=== PATIENT | female | born 1980 | race Caucasian/White ===

== ENCOUNTER 2018-07-02 09:00 | Observation (INO) | payer BC ==
[~2018-07-02] VITALS: Ht 167.6 cm; Wt 81.2 kg
== END 2018-07-02 10:20 | disposition home or self-care (01) ==
LOC: SPU 09:00
PROVIDERS: ADMIT Obstetrics & Gynecology; ATTEND Obstetrics & Gynecology
DX: Z34.93 Encounter for supervision of normal pregnancy, unspecified, third trimester (principal); Z3A.35 35 weeks gestation of pregnancy
CPT/HCPCS: 59025; 76815; G0378

== ENCOUNTER 2018-07-12 17:27 | Inpatient (IN) | payer BC ==
[~2018-07-12] VITALS: Ht 167.6 cm; Wt 81.6 kg
[~2018-07-12 17:27] MED LIST: ATROPINE SULFATE 0.4 MG/ML VIAL IVP ONE; BUPIVACAINE /DEX PF 0.75% SPINAL 2 ML AMP INJ ONE; LR 1,000 ML IV.SOLN IV ONE; MORPHINE SULFATE 10MG/10ML PF AMP EP ONE; NS 1000 ML IV.SOLN IV ONE; ePHEDrine sulfate 50 MG/ML VIAL IVP ONE
[2018-07-12] MEDS ORDERED: LR 1,000 ML IV ONE (17:40)
[2018-07-12] MEDS ORDERED: CEFAZOLIN 2 GM IVPB PREMIX 50 ML IV ONE (17:45)
[2018-07-12 18:12] LABS: BASOPHILS % (AUTO) 0.5 % (0.0-2.0); EOSINOPHILS # (AUTO) 0.2 K/uL (0.0-0.4); EOSINOPHILS % (AUTO) 1.9 % (0.0-4.0); HEMATOCRIT 43.2 % (36-48); LYMPHOCYTES # (AUTO) 1.9 K/uL (1.0-5.5); LYMPHOCYTES % (AUTO) 20.5 % (20.5-51.5); MEAN CORPUSCULAR HEMOGLOBIN 29 pg (27-31); MEAN CORPUSCULAR HGB CONC 33 % (32-36); MEAN CORPUSCULAR VOLUME 89 fL (79.0-98.0); MONOCYTES # (AUTO) 0.7 K/uL (0.0-1.0); MONOCYTES % (AUTO) 7.8 % (1.7-9.3); NEUTROPHILS # (AUTO) 6.5 K/uL (1.8-7.7); NEUTROPHILS % (AUTO) 69.3 % (40.0-70.0); PLATELET COUNT (AUTO) 207 K/uL (130-430); RED BLOOD CELL COUNT(AUTO) 4.84 MIL/uL (4.2-6.2); RED CELL DISTRIBUTION WIDTH 13.6 % (9.0-15.0); WHITE BLOOD COUNT (AUTO) 9.3 K/uL (4.8-10.8)
[2018-07-12 19:06] VITALS: BP_SYST 131
[2018-07-12] MEDS: LABETALOL HCL 100 MG TABLET PO SCH (20:41)
[2018-07-13] MEDS: LABETALOL HCL 100 MG TABLET PO SCH ×2 (09:03→21:30)
[2018-07-13] MEDS ORDERED: CEFAZOLIN 2 GM IVPB PREMIX 50 ML IV ONE (09:15)
[2018-07-13] MEDS ORDERED: LR 1,000 ML IV SCH ×2 (10:01→10:29)
[2018-07-13] MEDS ORDERED: NALOXONE HCL 1 MG in NACL 0.9% 1,000 ML IV PRN ×4 (10:01)
[2018-07-13] MEDS ORDERED: KETOROLAC TROMETHAMINE 60 MG/2 ML VIAL IM PRN (10:15)
[2018-07-13] MEDS ORDERED: ONDANSETRON HCL 4 MG/2 ML VIAL IVP PRN (10:15)
[2018-07-13] MEDS ORDERED: HYDROmorphone 1 MG INJ. 1 MG/ML AMPUL IVP PRN (10:15)
[2018-07-13] MEDS ORDERED: MEPERIDINE HCL/PF 25 MG/ML DISP.SYRIN IVP PRN ×2 (10:15)
[2018-07-13] MEDS ORDERED: HYDROmorphone 2 MG/ML VIAL IVP PRN ×2 (10:15)
[2018-07-13] MEDS ORDERED: DIPHENHYDRAMINE INJ 50 MG/ML VIAL IVP PRN ×2 (10:15→16:45)
[2018-07-13] MEDS ORDERED: DIPHENHYDRAMINE HCL 50 MG CAPSULE PO PRN (10:15)
[2018-07-13] MEDS ORDERED: NALOXONE HCL 0.4 MG/ML AMP (NARCAN) IVP PRN ×3 (10:15)
[2018-07-13] MEDS ORDERED: BISACODYL 10 MG/SUPPOSITORY RC PRN (10:30)
[2018-07-13] MEDS ORDERED: MEASLES,MUMPS&RUBELLA VACC/PF 12500 UNIT/0.5 ML VIAL SUBQ PRN (10:30)
[2018-07-13] MEDS ORDERED: RHO(D) IMMUNE GLOBULIN/MALTOSE 1500 UNITS/1.3 ML (WINHRO) IM PRN (10:30)
[2018-07-13] MEDS ORDERED: LANOLIN 7 GM OINT. TP PRN (10:30)
[2018-07-13] MEDS ORDERED: OXYCODONE/ACETAMINOPHEN 5-325 TABLET PO PRN (10:30)
[2018-07-13] MEDS ORDERED: DIPH-TET-PERTUS Vaccine 0.5 ML VIAL (ADACEL) I.M. PRN (10:30)
[2018-07-13] MEDS ORDERED: ANUSOL 1 EA SUPP.RECT (PREPARATION H) RC PRN (10:30)
[2018-07-13] MEDS ORDERED: SENNOSIDES/DOCUSATE SODIUM 1 TAB TABLET(SENOKOT-S) PO PRN (10:30)
[2018-07-13 10:43] VITALS: BP_SYST 116
[2018-07-13] MEDS ORDERED: DIPHENHYDRAMINE INJ 50 MG/ML VIAL IM PRN (16:45)
[2018-07-13] MEDS: IBUPROFEN 600 MG TABLET PO SCH ×2 (19:05→23:51)
[2018-07-13] MEDS: SIMETHICONE 80 MG TAB.CHEW PO PRN (19:05)
[2018-07-13] MEDS ORDERED: TEMAZEPAM 15 MG CAPSULE PO PRN (21:00)
[2018-07-14] MEDS: IBUPROFEN 600 MG TABLET PO SCH ×4 (06:08→23:56)
[2018-07-14 07:17] LABS: BASOPHILS % (AUTO) 0.4 % (0.0-2.0); EOSINOPHILS # (AUTO) 0.1 K/uL (0.0-0.4); EOSINOPHILS % (AUTO) 1.4 % (0.0-4.0); HEMATOCRIT 32.1 % (36-48); LYMPHOCYTES # (AUTO) 1.4 K/uL (1.0-5.5); LYMPHOCYTES % (AUTO) 13.5 % (20.5-51.5); MEAN CORPUSCULAR HEMOGLOBIN 31 pg (27-31); MEAN CORPUSCULAR HGB CONC 34 % (32-36); MEAN CORPUSCULAR VOLUME 90 fL (79.0-98.0); MONOCYTES # (AUTO) 0.7 K/uL (0.0-1.0); MONOCYTES % (AUTO) 6.8 % (1.7-9.3); NEUTROPHILS # (AUTO) 8.4 K/uL (1.8-7.7); NEUTROPHILS % (AUTO) 77.9 % (40.0-70.0); PLATELET COUNT (AUTO) 140 K/uL (130-430); RED BLOOD CELL COUNT(AUTO) 3.57 MIL/uL (4.2-6.2); RED CELL DISTRIBUTION WIDTH 13.6 % (9.0-15.0); WHITE BLOOD COUNT (AUTO) 10.6 K/uL (4.8-10.8)
[2018-07-14] MEDS: SIMETHICONE 80 MG TAB.CHEW PO PRN (08:58)
[2018-07-14] MEDS: LABETALOL HCL 100 MG TABLET PO SCH ×2 (09:00→23:22)
--- NOTE | 2018-07-14 14:33 | NUR ---
Dietitian Recommendations * Recommend continuing regular, [facility] standard carb-60 gm diet per LP, RD Please refer to Nutrition Assessment for details.
[2018-07-15] MEDS: IBUPROFEN 600 MG TABLET PO SCH ×4 (05:43→23:57)
[2018-07-15] MEDS: OXYCODONE/ACETAMINOPHEN 5-325 TABLET PO PRN (08:41)
[2018-07-15] MEDS: DOCUSATE SODIUM 100 MG CAPSULE PO PRN ×2 (08:41→21:30)
[2018-07-15] MEDS: LABETALOL HCL 100 MG TABLET PO SCH ×2 (08:44→21:30)
[2018-07-16] MEDS: IBUPROFEN 600 MG TABLET PO SCH (06:11)
[2018-07-16] MEDS: DOCUSATE SODIUM 100 MG CAPSULE PO PRN (06:11)
[2018-07-16] MEDS: OXYCODONE/ACETAMINOPHEN 5-325 TABLET PO PRN (06:30)
[2018-07-16] MEDS: LABETALOL HCL 100 MG TABLET PO SCH (09:54)
[2018-07-16] MEDS ORDERED: MEASLES,MUMPS&RUBELLA VACC/PF 12500 UNIT/0.5 ML VIAL SUBQ ONE (11:30)
== END 2018-07-16 11:40 | disposition home or self-care (01) | DRG 765 ==
LOC: SPU 17:27
PROVIDERS: ADMIT Obstetrics & Gynecology; ATTEND Obstetrics & Gynecology
PROC: 10D00Z1 Extraction of Products of Conception, Low, Open Approach (ICD-10-PCS; principal; 2018-07-13 09:15)
DX: O43.123 Velamentous insertion of umbilical cord, third trimester (principal); O10.92 Unspecified pre-existing hypertension complicating childbirth; O41.03X0 Oligohydramnios, third trimester, not applicable or unspecified; O24.420 Gestational diabetes mellitus in childbirth, diet controlled; D25.9 Leiomyoma of uterus, unspecified; O34.13 Maternal care for benign tumor of corpus uteri, third trimester; O99.214 Obesity complicating childbirth; E66.9 Obesity, unspecified; Z68.29 Body mass index [BMI] 29.0-29.9, adult; Z82.49 Family history of ischemic heart disease and other diseases of the circulatory system; Z3A.37 37 weeks gestation of pregnancy; Z37.0 Single live birth
CPT/HCPCS: 36415; 82947-TC; 82962; 85025; 86592; 86886; 86900; 86901; 90715; 94760; J0461; J0690; J1200; J2274; J3490; J7030; J7120

== ENCOUNTER 2020-10-01 11:42 | Inpatient (IN) | payer BC, SELFPAY ==
[~2020-10-01] VITALS: Ht 165.1 cm; Wt 84.4 kg
[2020-10-01] MEDS ORDERED: LR 1,000 ML IV ONE (12:15)
[2020-10-01 12:38] LABS: BASOPHILS # (AUTO) 0.1 K/uL (0.0-0.2); BASOPHILS % (AUTO) 1.4 % (0.0-2.0); EOSINOPHILS % (AUTO) 0.3 % (0.0-4.0); HEMATOCRIT 42.6 % (36-48); HEMOGLOBIN 14.8 g/dL (12.0-16.0); LYMPHOCYTES # (AUTO) 1.7 K/uL (1.0-5.5); LYMPHOCYTES % (AUTO) 19.9 % (20.5-51.5); MEAN CORPUSCULAR HEMOGLOBIN 31 pg (27-31); MEAN CORPUSCULAR HGB CONC 35 % (32-36); MEAN CORPUSCULAR VOLUME 90 fL (79.0-98.0); MONOCYTES # (AUTO) 0.5 K/uL (0.0-1.0); MONOCYTES % (AUTO) 6.2 % (1.7-9.3); NEUTROPHILS # (AUTO) 6.2 K/uL (1.8-7.7); NEUTROPHILS % (AUTO) 72.2 % (40.0-70.0); PLATELET COUNT (AUTO) 183 K/uL (130-430); RED BLOOD CELL COUNT(AUTO) 4.76 MIL/uL (4.2-6.2); RED CELL DISTRIBUTION WIDTH 13.8 % (9.0-15.0); WHITE BLOOD COUNT (AUTO) 8.6 K/uL (4.8-10.8)
[2020-10-01 12:47] LABS: BILIRUBIN,URINE NEGATIVE (NEGATIVE); BLOOD, URINE 1+ (NEGATIVE); CLARITY/URINE CLEAR (CLEAR); COLOR,URINE YELLOW (YELLOW); GLUCOSE,URINE NEGATIVE (NEGATIVE); KETONES,URINE NEGATIVE (NEGATIVE); LEUKOCYTE ESTERASE ,URINE NEGATIVE (NEGATIVE); NITRITE, URINE NEGATIVE (NEGATIVE); PROTEIN URINE NEGATIVE (NEGATIVE); UROBILINOGEN,URINE 0.2 (0.2-1.0)
[2020-10-01 13:03] LABS: BACTERIA,URINE MODERATE /HPF (None Seen); MUCUS,URINE 1+ /LPF (None Seen); RBC,URINE 0-3 /HPF (0-3); WBC,URINE 0-3 /HPF (0-3)
[2020-10-01 14:21] VITALS: BP_SYST 134
[2020-10-01] MEDS ORDERED: FLU VACC QS2020-21 (6 mos & up) 0.5 ML/SYRINGE I.M. PRN (14:30)
[2020-10-01] MEDS ORDERED: TERBUTALINE SULFATE 1 MG/ML VIAL SUBCUT ONE (19:15)
[2020-10-01] MEDS ORDERED: CEFAZOLIN 2 GM IVPB PREMIX 50 ML IV ONE ×2 (23:17→23:29)
[2020-10-01] MEDS ORDERED: MORPHINE SULFATE 10MG/10ML PF AMP EP ONE (23:29)
[2020-10-01] MEDS ORDERED: NS IRRIG SOLN 1000 ML IR ONE (23:29)
[2020-10-01] MEDS ORDERED: DEXAMETHASONE SOD PHOSPHATE 4 MG/ML VIAL IVP ONE (23:29)
[2020-10-01] MEDS ORDERED: LR 1,000 ML IV.SOLN IV ONE (23:29)
[2020-10-01] MEDS ORDERED: ONDANSETRON HCL 4 MG/2 ML VIAL IVP ONE (23:29)
[2020-10-01] MEDS ORDERED: ePHEDrine sulfate 50 MG/ML VIAL IVP ONE (23:29)
[2020-10-01] MEDS ORDERED: METOCLOPRAMIDE HCL 10 MG/2 ML VIAL IVP ONE (23:29)
[2020-10-01] MEDS ORDERED: NALOXONE HCL 0.4 MG/ML AMP (NARCAN) IVP PRN (23:45)
[2020-10-01] MEDS ORDERED: RHO(D) IMMUNE GLOBULIN/MALTOSE 1500 UNITS/1.3 ML (WINHRO) IM PRN (23:45)
[2020-10-01] MEDS ORDERED: DIPH-TET-PERTUS Vaccine 0.5 ML VIAL (ADACEL) I.M. PRN (23:45)
[2020-10-01] MEDS ORDERED: ANUSOL 1 EA SUPP.RECT (PREPARATION H) RC PRN (23:45)
[2020-10-01] MEDS ORDERED: LR 1,000 ML IV SCH (23:45)
[2020-10-01] MEDS ORDERED: OXYTOCIN/0.9 % SODIUM CHLORIDE 1,000 ML IV SCH (23:45)
[2020-10-01] MEDS ORDERED: MEASLES,MUMPS&RUBELLA VACC/PF 12500 UNIT/0.5 ML VIAL SUBQ PRN (23:45)
[2020-10-01] MEDS ORDERED: OXYCODONE/ACETAMINOPHEN *10*mg/325 mg TABLET PO PRN (23:45)
[2020-10-01] MEDS ORDERED: HYDROcodone/ACETAMIN 5-325 MG TAB (NORCO/ VICODIN) PO PRN (23:45)
[2020-10-01] MEDS ORDERED: LANOLIN 7 GM OINT. TP PRN (23:45)
[2020-10-01] MEDS ORDERED: TEMAZEPAM 15 MG CAPSULE PO PRN (23:45)
[2020-10-01] MEDS ORDERED: BISACODYL 10 MG/SUPPOSITORY RC PRN (23:45)
[2020-10-01] MEDS ORDERED: SENNOSIDES/DOCUSATE SODIUM 1 TAB TABLET(SENOKOT-S) PO PRN (23:45)
[2020-10-01] MEDS ORDERED: SIMETHICONE 80 MG TAB.CHEW PO PRN (23:45)
[2020-10-02] MEDS ORDERED: DIPHENHYDRAMINE INJ 50 MG/ML VIAL IVP PRN (00:30)
[2020-10-02] MEDS ORDERED: DIPHENHYDRAMINE HCL 50 MG CAPSULE PO PRN (00:30)
[2020-10-02] MEDS ORDERED: KETOROLAC TROMETHAMINE 60 MG/2 ML VIAL IM PRN (00:30)
[2020-10-02] MEDS ORDERED: NALOXONE HCL 0.4 MG/ML AMP (NARCAN) IVP PRN ×3 (00:30)
[2020-10-02] MEDS ORDERED: LR 1,000 ML IV SCH (00:30)
[2020-10-02] MEDS ORDERED: NALOXONE HCL 1 MG in NACL 0.9% 1,000 ML IV PRN ×4 (00:30)
[2020-10-02] MEDS ORDERED: MORPHINE SULFATE 10MG/10ML PF AMP SP SCH (00:30)
[2020-10-02] MEDS ORDERED: HYDROmorphone 2 MG/ML VIAL IVP PRN ×2 (00:30)
[2020-10-02] MEDS ORDERED: MEPERIDINE HCL/PF 25 MG/ML DISP.SYRIN IVP PRN ×2 (00:30)
[2020-10-02] MEDS ORDERED: MORPHINE 4 MG/ML INJ. SYRINGE IVP PRN (00:30)
[2020-10-02] MEDS ORDERED: HYDROmorphone 1 MG INJ. 1 MG/ML AMPUL IVP PRN (00:30)
[2020-10-02] MEDS ORDERED: ONDANSETRON HCL 4 MG/2 ML VIAL IVP PRN (00:30)
[2020-10-02 00:36] VITALS: BP_SYST 122
[2020-10-02] MEDS ORDERED: OXYTOCIN 10 UNIT/ML VIAL ONE (02:02)
[2020-10-02] MEDS ORDERED: OXYTOCIN/0.9 % SODIUM CHLORIDE 1,000 ML IV ONE (02:03)
[2020-10-02] MEDS: KETOROLAC TROMETHAMINE 30 MG VIAL IVP SCH ×3 (05:53→18:15)
[2020-10-02] MEDS: CEFAZOLIN 1 GM IVPB PREMIX 50 ML IV SCH ×3 (05:54→18:15)
[2020-10-02 06:54] LABS: BASOPHILS % (AUTO) 0.3 % (0.0-2.0); HEMATOCRIT 39.4 % (36-48); HEMOGLOBIN 13.1 g/dL (12.0-16.0); LYMPHOCYTES # (AUTO) 0.6 K/uL (1.0-5.5); LYMPHOCYTES % (AUTO) 4.2 % (20.5-51.5); MEAN CORPUSCULAR HEMOGLOBIN 30 pg (27-31); MEAN CORPUSCULAR HGB CONC 33 % (32-36); MEAN CORPUSCULAR VOLUME 90 fL (79.0-98.0); MONOCYTES # (AUTO) 0.4 K/uL (0.0-1.0); MONOCYTES % (AUTO) 2.9 % (1.7-9.3); NEUTROPHILS % (AUTO) 92.6 % (40.0-70.0); PLATELET COUNT (AUTO) 162 K/uL (130-430); RED BLOOD CELL COUNT(AUTO) 4.36 MIL/uL (4.2-6.2); WHITE BLOOD COUNT (AUTO) 15.1 K/uL (4.8-10.8)
[2020-10-02] MEDS: DOCUSATE SODIUM 100 MG CAPSULE PO PRN (19:49)
[2020-10-02] MEDS: OXYCODONE/ACETAMINOPHEN 5-325 TABLET PO PRN (23:51)
[2020-10-03] MEDS: KETOROLAC TROMETHAMINE 30 MG VIAL IVP SCH
[2020-10-03] MEDS: DOCUSATE SODIUM 100 MG CAPSULE PO PRN ×2 (06:05→18:23)
[2020-10-03] MEDS: OXYCODONE/ACETAMINOPHEN 5-325 TABLET PO PRN ×2 (06:05→12:06)
[2020-10-03] MEDS: IBUPROFEN 600 MG TABLET PO SCH ×3 (06:05→18:23)
[2020-10-04 20:09] LABS: FTA-Ab (T PALLIDUM) Non Reactive (Non Reactive)
== END 2020-10-03 20:23 | disposition home or self-care (01) | DRG 788 ==
LOC: SPU 11:42 → OBSVTOIN 11:42 → SPU 17:56
PROVIDERS: ADMIT Specialist; ATTEND Specialist
PROC: 10D00Z1 Extraction of Products of Conception, Low, Open Approach (ICD-10-PCS; principal; 2020-10-02)
DX: O34.211 Maternal care for low transverse scar from previous cesarean delivery (principal); O69.0XX0 Labor and delivery complicated by prolapse of cord, not applicable or unspecified; Z20.828 Contact with and (suspected) exposure to other viral communicable diseases; Z3A.39 39 weeks gestation of pregnancy; Z37.0 Single live birth
CPT/HCPCS: 36415; 81000-TC; 82962; 85025; 86592; 86780; 86886; 86900; 86901; J0690; J1100; J1885; J2274; J2405; J2590; J2765; J7120; U0003